=== PATIENT | female | born 1955 | race Caucasian/White ===

== ENCOUNTER → 2016-11-10 | Outpatient (CLI) | payer BC ==
[~2016-11-10] MED LIST: ASPI1TAB22 PO; CLOP75TA3 PO; CPR500T PO; ESTR1TAB24 PO; FISH OIL PO; LISI1TAB10 PO; PHEN-640 PO; ROSU40TA PO; TAMS-8 PO; VENL150C PO
--- NOTE | 2016-11-10 14:38 | Diagnostic Imaging Report ---
INDICATION: Postmenopausal, screening for osteoporosis. COMPARISON: None. DISCUSSION: Bone mineral density measurements of the lumbar spine and bilateral hips was performed on a [employer] DEXA scanner. Bone mineral density of the lumbar spine, L1-L4, measures 1.428 g/cm2 which correlates to a T score of 1.9, normal. Bone mineral density of the right hip measures 1.020 g/cm2 which correlates to a T score of 0.2, normal. Bone mineral density of the left hip measures 1.067 g/cm2 which correlates to a T score of 0.6, normal. Exam is considered normal by [employer] guidelines. IMPRESSION: 1. Normal bone mineral density. Dictated by: Dictated on workstation # [id number]
== END ==
LOC: RAD 12:16
PROVIDERS: ATTEND Family Medicine
DX: R00.2 Palpitations (principal); Z78.0 Asymptomatic menopausal state
CPT/HCPCS: 77080; 93306